=== PATIENT | female | born 1970 ===

== ENCOUNTER → 2021-05-23 | Outpatient (CLI) | payer OTHER | END | disposition home or self-care (01) | LOC: LAB 11:40 → LAB SHORT 11:40 | DX: D18.01 Hemangioma of skin and subcutaneous tissue (principal) | CPT/HCPCS: 88305 ==

== ENCOUNTER 2022-02-16 21:17 | Emergency (ER) | payer OTHER ==
[~2022-02-16] VITALS: Ht 170.2 cm; Wt 79.4 kg
[2022-02-16] MEDS ORDERED: EUTHYROX137 MC1 PO (21:51)
[2022-02-16] MEDS ORDERED: NEURONTIN300 MG PO (21:51)
[2022-02-16] MEDS ORDERED: PAXIL PO (21:51)
== END 2022-02-16 22:00 | disposition home or self-care (01) ==
LOC: ER 21:17
DX: S00.81XA Abrasion of other part of head, initial encounter (principal); X58.XXXA Exposure to other specified factors, initial encounter; Z79.899 Other long term (current) drug therapy
CPT/HCPCS: 99282